=== PATIENT | female | born 1990 | race Asian ===

== ENCOUNTER 2017-08-19 23:53 | Emergency (ER) | payer BC ==
[2017-08-20] VITALS: BP 173/111; PULSE 118; RESP 16; TEMP 97.7; O2SAT 100
[2017-08-20] MEDS ORDERED: LIDOCAINE HCL 1% 50 ML VIAL INFIL ONE (00:45)
[2017-08-20] MEDS ORDERED: CEPH-460 PO (00:50)
[2017-08-20] MEDS ORDERED: ULTR50TA5 PO (00:50)
[2017-08-20] MEDS ORDERED: IBUP-232 PO (00:50)
--- NOTE | 2017-08-20 00:50 | PD ---
HPI Chief Complaint: Laceration/Skin Injury Time Seen by Provider: 00:41 Travel History International Travel<30 days: No Contact w/Intl Traveler<30days: No Traveled to known affect area: No History of Present Illness HPI 27-year-old female complains of left fourth finger laceration. Patient accidentally caught the left fourth finger on a closing car door. Patient denies any other injury. Patient states that she has sharp pain localized to the distal phalanx left fourth finger. Patient denies any pain radiation. Patient states that she is up-to-date with TD booster. Patient denies any chance of being . PFSH Past Medical History ?: Not LMP: 08/19/17 Social History Tobacco Use: No Allergies-Medications (Allergen,Severity, Reaction): Coded Allergies: No Known Allergies (Verified Allergy, Unknown, 08/20/17) Reported Meds & Prescriptions Reported Meds & Active Scripts Active Ibuprofen 600 Mg Tab 600 Mg PO TID Ultram (Tramadol HCl) 50 Mg Tab 50 Mg PO Q6H PRN Keflex (Cephalexin) 500 Mg Capsule 500 Mg PO TID Review of Systems General / Constitutional: No: Fever Eyes: No: Visual changes HENT: No: Headaches Cardiovascular: No: Chest Pain or Discomfort Respiratory: No: Shortness of Breath Gastrointestinal: No: Abdominal Pain Genitourinary: No: Dysuria Musculoskeletal: Positive: Pain Skin: No Rash Neurologic: No: Weakness Psychiatric: No: Depression Endocrine: No: Polydipsia Hematologic/Lymphatic: No: Easy Bruising Physical Exam Narrative GENERAL: Well-nourished, well-developed patient. SKIN: Focused skin assessment warm/dry. HEAD: Normocephalic. EYES: No scleral icterus. No injection or drainage. NECK: Supple, trachea midline. No JVD or lymphadenopathy. CARDIOVASCULAR: Regular rate and rhythm without murmurs, gallops, or rubs. RESPIRATORY: Breath sounds equal bilaterally. No accessory muscle use. GASTROINTESTINAL: Abdomen soft, non-tender, nondistended. MUSCULOSKELETAL: No cyanosis, or edema. BACK: Nontender without obvious deformity. No CVA tenderness. Patient has 2 cm laceration distal phalanx left fourth finger. No nail bed involvement. No active bleeding. Data Data Last Documented VS Orders Orders Lidocaine 1% Inj (50 Ml) (Xylocaine 1% I (08/20/17 00:45) Finger ([id number]) (08/20/17 00:44) Cefazolin Inj (Ancef Inj) (08/20/17 01:00) MDM Medical Decision Making Medical Screen Exam Complete: Yes Emergency Medical Condition: Yes Differential Diagnosis Differential diagnosis including laceration, open fracture. Narrative Course 27-year-old female with left fourth finger laceration. Procedures Procedure Narrative LACERATION LOCATION: Left fourth finger LENGTH: 2 cm NUMBER OF STITCHES/GALINA: 5 REPAIR: The area of the laceration was prepped with Betadine and sterilely draped. The laceration was infiltrated with 1% lidocaine. The wound was copiously irrigated and explored without evidence of foreign body, tendon injury or neurovascular injury. The wound was closed using 4-0 Prolene. This was a single layer repair. A sterile dressing was applied. The patient was advised to keep the dressing clean and dry. Patient tolerated the procedure well. Diagnosis Primary Impression: Laceration of finger of left hand Qualified Codes: S61.215A - Laceration without foreign body of left ring finger without damage to nail, initial encounter Patient Instructions: General Instructions Additional Instructions: Wound care daily. Take medications as directed. Suture removal in 10 days. Med/Other Pt SpecificInfo: Prescription(s) given Scripts Ibuprofen (Ibuprofen) 600 Mg Tab 600 MG PO TID for Pain, #30 TAB 0 Refills Prov: Jesus Alberto Isbell MD 08/20/17 Tramadol (Ultram) 50 Mg Tab 50 MG PO Q6H Y for PAIN, #12 TAB 0 Refills Prov: Jesus Alberto Isbell MD 08/20/17 Cephalexin (Keflex) 500 Mg Capsule 500 MG PO TID for Infection, #15 CAP 0 Refills Prov: Jesus Alberto Isbell MD 08/20/17 Disposition: DISCHARGE HOME Condition: Stable Jesus Alberto Isbell MD Aug 20, 2017 00:50
--- NOTE | 2017-08-20 02:58 | RADRPT ---
EXAM DATE/TIME: 08/20/2017 00:59 [facility] COMPARISON: No previous studies available for comparison. INDICATIONS : Patient states she shut a car door on her finger. MEDICAL HISTORY : None. SURGICAL HISTORY : None. ENCOUNTER: Initial ACUITY: 1 day PAIN SCORE: 2/10 LOCATION: Left hand, fourth digit. FINDINGS: 3 views of the fourth finger reveal acute fracture multilevel distal phalanx. No significant angulati on or distraction. No radiopaque foreign bodies. CONCLUSION: Acute tuft fracture. Tyson Martinez Jr., MD on August 20, 2017 at 1:38 Board Certified Radiologist. This report was verified electronically.
== END 2017-08-20 01:45 | disposition home or self-care (01) ==
LOC: NED 23:53 → NEPD 08-20 01:45
DX: S61.215A Laceration without foreign body of left ring finger without damage to nail, initial encounter (principal); W23.0XXA Caught, crushed, jammed, or pinched between moving objects, initial encounter
CPT/HCPCS: 12001; 73140